=== PATIENT | female | born 1970 | race Caucasian/White ===

== ENCOUNTER 2018-07-12 08:15 | Outpatient (RCR) | payer OTHER, MEDICAID, SELFPAY ==
--- NOTE | 2018-06-14 15:13 | PT.OIE ---
Current Diagnoses Other chronic pain (06/14/18) Radiculopathy, lumbar region (06/14/18) Low back pain (06/14/18) Past Medical History (Last Reviewed 05/01/18 @ 13:56 by Chichi Chester DO) Depression (Chronic) Factor V Leiden (Chronic) Past Surgical History (Last Reviewed 05/01/18 @ 13:56 by Chichi Chester DO) Status post tubal ligation (~2005) Provider Visit Care Team Role Provider Type Chichi Chester DO Attending Provider Physician Primary Care Provider Specialty: Family Practice Address: [address] [place] [address], [facility] Email: [email or web address] Physical Therapy Initial Evaluation PT-OP-A Visit Information Start: 06/14/18 07:23 Freq: Status: Active Protocol: Document 06/14/18 07:30 AMB (Rec: 06/14/18 09:42 AMB [email or web address]) Out-Patient Physical Therapy Visit Information Visit Information Visit Type Initial Evaluation Visit Start Time 07:30 Visit Stop Time 08:15 Total Visit Minutes 45 Visit Number 1 PT-OP-B Current Condition Start: 06/14/18 07:23 Freq: Status: Active Protocol: Document 06/14/18 07:30 AMB (Rec: 06/14/18 09:42 AMB [email or web address]) Current Condition History of Current Condition Onset Date 1 year Current Complaints back pain with radiating R leg pain History of Current Condition The patient reports she increased her walking about a year ago to facilitate weight loss and started having pain in her foot at that time. 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 Now, the pain is in her back and goes down to the right leg, it can go into the left side a little when really bad, but is predominantly R sided. When it gets bad it is usually bad for 2-3 days, then calms down when she rests. Pain is bad at night and affects sleep. Attributes increased pain to walking more. Prior Functional Status Baseline Function- ADL's Independent Baseline Function- Mobility Independent Baseline Function- Other Previously less active Current Functional Impairments (Reported) Functional Limitations- ADL's Limits walking due to pain, does not notice that lifting or reaching necessarily increases pain, but everything hurts when in a pain flare up . 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 All nights are painful and limit her sleeping. Patient Questionnaires Oswestry Low Back Index Oswestry Score 43 Oswestry Impairment 40 to 59% Impaired (Score 40- 59) OP-PT Pain Assessment Location Right Back Pain Location Details down leg Intensity 8 Scale Used Numeric (1 - 10) PT-OP-F Manual Assessment Start: 06/14/18 07:23 Freq: Status: Active Protocol: Document 06/14/18 07:30 AMB (Rec: 06/15/18 08:59 AMB [email or web address]) Manual Assessments Soft Tissue Assessment Soft Tissue Mobility Assessment Tightness at right hamstring and piriformis and quadratus lumborum. Joint Mobility Assessment Joint Mobility Assessment No increased pain with PAs through lumbar spine, but, stiffness present. PT-OP-G Mobility & Gait Start: 06/14/18 07:23 Freq: Status: Active Protocol: Document 06/14/18 07:30 AMB (Rec: 06/15/18 08:59 AMB [email or web address]) OP Gait Assessment Comments Gait Comments Good stride length, mildly reduced trunk rotation PT-OP-J Posture/Palpation/Skin Start: 06/14/18 07:23 Freq: Status: Active Protocol: Document 06/14/18 07:30 AMB (Rec: 06/15/18 08:59 AMB [email or web address]) Posture Evaluation Comments Posture Comments Increased lumbar lordosis PT-OP-K Range of Motion Start: 06/14/18 07:23 Freq: Status: Active Protocol: Document 06/14/18 07:30 AMB (Rec: 06/15/18 08:59 AMB [email or web address]) Lumbar Spine Range of Motion Lumbar Spine Active Percentage Testing Position Standing Flexion 100 Extension 75 Lateral Flexion Left 75 Lateral Flexion Right 25 Comments SB right painful PT-OP-L Special Tests Start: 06/14/18 07:23 Freq: Status: Active Protocol: Document 06/14/18 07:30 AMB (Rec: 06/15/18 08:59 AMB [email or web address]) Special Tests Lumbar Spine Special Tests Straight Leg Raise Test Results positive PT-OP-M Strength Start: 06/14/18 07:23 Freq: Status: Active Protocol: Document 06/14/18 07:30 AMB (Rec: 06/15/18 08:59 AMB [email or web address]) Hip Strength Hip Manual Muscle Testing Right Flexion (L2) 4- Good- Extension (S1) 4 Good Abduction 4 Good Adduction 4 Good Left Flexion (L2) 4+ Good+ Extension (S1) 4+ Good+ Abduction 4+ Good+ Adduction 4+ Good+ PT-OP-Q Treatments Start: 06/14/18 07:23 Freq: Status: Active Protocol: Document 06/14/18 07:30 AMB (Rec: 06/15/18 15:13 AMB [email or web address]) Therapeutic Exercises Supine Exercises 2 Supine Exercise Name piriformis stretch 1 Supine Exercise Name active hamstring stretch Other Exercises 1 Other Exercise Name cat/cow PT-OP-R Modalities Start: 06/14/18 07:23 Freq: Status: Active Protocol: Document 06/14/18 07:30 AMB (Rec: 06/14/18 09:45 AMB [email or web address]) Electric Stimulation Electric Stimulation Interferential Current (IFC) Body Location R low back Duration (Minutes) 12 Patient Position Hooklying PT-OP-T Assessment and Plan Start: 06/14/18 07:23 Freq: Status: Active Protocol: Document 06/14/18 07:30 AMB (Rec: 06/15/18 15:11 AMB [email or web address]) Physical Therapy Assessment Rehab Potential Rehabilitation Potential Good Evaluation Complexity Number of Personal Factors/Comorbidities 1-2 Number of Body Systems Impaired 3 Clinical Presentation at Evaluation Stable Impairments Impairments Activity Tolerance Pain Posture Goals Three Impairment Strength Short Term Goal (STG) The patient will improve her LE and core strength to 4+/5 in all planes. STG Duration 4 weeks Two Impairment ADLS Short Term Goal (STG) The patient will sleep for 6 hours without being woken due to pain. 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 LTG Duration 8 weeks One Impairment Gait Short Term Goal (STG) The patient will walk for 4 miles with pain of 4/10 or less. STG Duration 8 weeks Assessment Summary Assessment Tierra attends PT with radiating leg pain from her low back and hip, intermittent in nature and worse with walking. At evaluation her gait was not significantly impaired but she was very sore to palpation at right quadratus lumborum and piriformis. She will benefit from modalities and manual therapy to reduce her pain, then progress her range of motion and core/hip stability so that she can continue with her walking and weight loss goals without leg pain and foot numbness. Physical Therapy Plan Frequency and Duration Frequency of Treatment 2x/Week Duration of Treatment 8 weeks Plan of Care Start Date 06/14/18 Plan of Care End Date 08/02/18 Therapeutic Interventions Therapeutic Interventions Aquatic Therapy Gait Training Home Exercise Program Joint Mobilizations Manual Therapy Neuromuscular Re-education Self-Care/Home Management Therapeutic Activities Therapeutic Exercises Modalities Cold Pack/Ice Massage Electric Stimulation Hot Packs Traction- Mechanical Next Visit Focus/Plan Next Note Type Treatment Note Next Visit Plan Progress HEP for LE stretching /nerve glides, core and hip stabilization, manual therapy/ modalities for pain control as needed.
--- NOTE | 2018-06-14 15:15 | PT.OPPOC ---
Current Diagnoses Other chronic pain (06/14/18) Radiculopathy, lumbar region (06/14/18) Low back pain (06/14/18) Provider Visit Care Team Role Provider Type Chichi Chester DO Attending Provider Physician Primary Care Provider Specialty: Family Practice Address: [address] [place] [address], [id number] Email: [email or web address] Plan Of Care PT-OP-T Assessment and Plan Start: 06/14/18 07:23 Freq: Status: Active Protocol: Document 06/14/18 07:30 AMB (Rec: 06/15/18 15:11 AMB [email or web address]) Physical Therapy Assessment Rehab Potential Rehabilitation Potential Good Evaluation Complexity Number of Personal Factors/Comorbidities 1-2 Number of Body Systems Impaired 3 Clinical Presentation at Evaluation Stable Impairments Impairments Activity Tolerance Pain Posture Goals Three Impairment Strength Short Term Goal (STG) The patient will improve her LE and core strength to 4+/5 in all planes. STG Duration 4 weeks Two Impairment ADLS Short Term Goal (STG) The patient will sleep for 6 hours without being woken due to pain. 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 LTG Duration 8 weeks One Impairment Gait Short Term Goal (STG) The patient will walk for 4 miles with pain of 4/10 or less. STG Duration 8 weeks Assessment Summary Assessment Tierra attends PT with radiating leg pain from her low back and hip, intermittent in nature and worse with walking. At evaluation her gait was not significantly impaired but she was very sore to palpation at right quadratus lumborum and piriformis. She will benefit from modalities and manual therapy to reduce her pain, then progress her range of motion and core/hip stability so that she can continue with her walking and weight loss goals without leg pain and foot numbness. Physical Therapy Plan Frequency and Duration Frequency of Treatment 2x/Week Duration of Treatment 8 weeks Plan of Care Start Date 06/14/18 Plan of Care End Date 08/02/18 Therapeutic Interventions Therapeutic Interventions Aquatic Therapy Gait Training Home Exercise Program Joint Mobilizations Manual Therapy Neuromuscular Re-education Self-Care/Home Management Therapeutic Activities Therapeutic Exercises Modalities Cold Pack/Ice Massage Electric Stimulation Hot Packs Traction- Mechanical Next Visit Focus/Plan Next Note Type Treatment Note Next Visit Plan Progress HEP for LE stretching /nerve glides, core and hip stabilization, manual therapy/ modalities for pain control as needed. Plan of Care Dates Plan of Care Start Date 06/14/18 Plan of Care End Date 08/02/18 Please Sign and Return: I have reviewed this Plan of Care and certify that the skilled therapy services above are required to meet the patient?s needs. Physician Signature Date Printed Name and Credentials Clinical Instructor Signature Printed Name and Credentials
--- NOTE | 2018-06-16 16:09 | PT.OTN ---
Current Diagnoses Other chronic pain (06/16/18) Radiculopathy, lumbar region (06/16/18) Low back pain (06/16/18) Physical Therapy Treatment Note PT-OP-A Visit Information Start: 06/14/18 07:23 Freq: Status: Active Protocol: Document 06/16/18 11:15 AMB (Rec: 06/16/18 13:01 AMB [email or web address]) Out-Patient Physical Therapy Visit Information Visit Information Visit Type Treatment Note Visit Start Time 11:15 Visit Stop Time 12:00 Total Visit Minutes 45 Visit Number 2 PT-OP-B Current Condition Start: 06/14/18 07:23 Freq: Status: Active Protocol: Document 06/14/18 07:30 AMB (Rec: 06/14/18 09:42 AMB [email or web address]) Current Condition History of Current Condition Onset Date 1 year Current Complaints back pain with radiating R leg pain History of Current Condition The patient reports she increased her walking about a year ago to facilitate weight loss and started having pain in her foot at that time. 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 Now, the pain is in her back and goes down to the right leg, it can go into the left side a little when really bad, but is predominantly R sided. When it gets bad it is usually bad for 2-3 days, then calms down when she rests. Pain is bad at night and affects sleep. Attributes increased pain to walking more. Prior Functional Status Baseline Function- ADL's Independent Baseline Function- Mobility Independent Baseline Function- Other Previously less active Current Functional Impairments (Reported) Functional Limitations- ADL's Limits walking due to pain, does not notice that lifting or reaching necessarily increases pain, but everything hurts when in a pain flare up . 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 PT-OP-F Manual Assessment Start: 06/14/18 07:23 Freq: Status: Active Protocol: Document 06/14/18 07:30 AMB (Rec: 06/15/18 08:59 AMB [email or web address]) Manual Assessments Soft Tissue Assessment Soft Tissue Mobility Assessment Tightness at right hamstring and piriformis. Joint Mobility Assessment Joint Mobility Assessment No increased pain with PAs through lumbar spine, but, stiffness present. PT-OP-G Mobility & Gait Start: 06/14/18 07:23 Freq: Status: Active Protocol: Document 06/14/18 07:30 AMB (Rec: 06/15/18 08:59 AMB [email or web address]) OP Gait Assessment Comments Gait Comments Good stride length, mildly reduced trunk rotation PT-OP-J Posture/Palpation/Skin Start: 06/14/18 07:23 Freq: Status: Active Protocol: Document 06/14/18 07:30 AMB (Rec: 06/15/18 08:59 AMB [email or web address]) Posture Evaluation Comments Posture Comments Increased lumbar lordosis PT-OP-K Range of Motion Start: 06/14/18 07:23 Freq: Status: Active Protocol: Document 06/14/18 07:30 AMB (Rec: 06/15/18 08:59 AMB [email or web address]) Lumbar Spine Range of Motion Lumbar Spine Active Percentage Testing Position Standing Flexion 100 Extension 75 Lateral Flexion Left 75 Lateral Flexion Right 25 Comments SB right painful PT-OP-L Special Tests Start: 06/14/18 07:23 Freq: Status: Active Protocol: Document 06/14/18 07:30 AMB (Rec: 06/15/18 08:59 AMB [email or web address]) Special Tests Lumbar Spine Special Tests Straight Leg Raise Test Results positive PT-OP-M Strength Start: 06/14/18 07:23 Freq: Status: Active Protocol: Document 06/14/18 07:30 AMB (Rec: 06/15/18 08:59 AMB [email or web address]) Hip Strength Hip Manual Muscle Testing Right Flexion (L2) 4- Good- Extension (S1) 4 Good Abduction 4 Good Adduction 4 Good Left Flexion (L2) 4+ Good+ Extension (S1) 4+ Good+ Abduction 4+ Good+ Adduction 4+ Good+ PT-OP-Q Treatments Start: 06/14/18 07:23 Freq: Status: Active Protocol: Document 06/16/18 11:15 AMB (Rec: 06/16/18 16:07 AMB [email or web address]) Therapeutic Exercises Supine Exercises 5 Supine Exercise Name quad stretch Reps/Minutes 30x2 4 Supine Exercise Name bridges Reps/Minutes 2x10 3 Supine Exercise Name SLR Reps/Minutes 2x10 2 Supine Exercise Name piriformis stretch 1 Supine Exercise Name active hamstring stretch Sidelying Exercises 2 Sidelying Exercise Name clamshell Reps/Minutes 2x10 1 Sidelying Exercise Name hip abd SLR Reps/Minutes 2x10 Manual Therapy Treatment Soft Tissue Mobilization 1 Body Location L hip Mobilization Type Myofascial Release Comments long axis traction, piriformis MFR PT-OP-R Modalities Start: 06/14/18 07:23 Freq: Status: Active Protocol: Document 06/14/18 07:30 AMB (Rec: 06/14/18 09:45 AMB [email or web address]) Electric Stimulation Electric Stimulation Interferential Current (IFC) Body Location R low back Duration (Minutes) 12 Patient Position Hooklying PT-OP-T Assessment and Plan Start: 06/14/18 07:23 Freq: Status: Active Protocol: Document 06/16/18 11:15 AMB (Rec: 06/16/18 16:07 AMB [email or web address]) Physical Therapy Assessment Assessment Summary Assessment Pt had a painful day today. Clamshells did not increase pain, but other exercises did. Physical Therapy Plan Next Visit Focus/Plan Next Note Type Treatment Note Next Visit Plan Progress HEP for LE stretching /nerve glides, core and hip stabilization, manual therapy/ modalities for pain control as needed.
--- NOTE | 2018-06-23 11:26 | PT.OTN ---
Current Diagnoses Other chronic pain (06/23/18) Radiculopathy, lumbar region (06/23/18) Low back pain (06/23/18) Physical Therapy Treatment Note PT-OP-A Visit Information Start: 06/14/18 07:23 Freq: Status: Active Protocol: Document 06/23/18 10:30 AMB (Rec: 06/23/18 11:26 AMB [email or web address]) Out-Patient Physical Therapy Visit Information Visit Information Visit Type Treatment Note Visit Start Time 10:30 Visit Stop Time 11:15 Total Visit Minutes 45 Visit Number 3 PT-OP-B Current Condition Start: 06/14/18 07:23 Freq: Status: Active Protocol: Document 06/14/18 07:30 AMB (Rec: 06/14/18 09:42 AMB [email or web address]) Current Condition History of Current Condition Onset Date 1 year Current Complaints back pain with radiating R leg pain History of Current Condition The patient reports she increased her walking about a year ago to facilitate weight loss and started having pain in her foot at that time. 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 Now, the pain is in her back and goes down to the right leg, it can go into the left side a little when really bad, but is predominantly R sided. When it gets bad it is usually bad for 2-3 days, then calms down when she rests. Pain is bad at night and affects sleep. Attributes increased pain to walking more. Prior Functional Status Baseline Function- ADL's Independent Baseline Function- Mobility Independent Baseline Function- Other Previously less active Current Functional Impairments (Reported) Functional Limitations- ADL's Limits walking due to pain, does not notice that lifting or reaching necessarily increases pain, but everything hurts when in a pain flare up . 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 PT-OP-F Manual Assessment Start: 06/14/18 07:23 Freq: Status: Active Protocol: Document 06/14/18 07:30 AMB (Rec: 06/15/18 08:59 AMB [email or web address]) Manual Assessments Soft Tissue Assessment Soft Tissue Mobility Assessment Tightness at right hamstring and piriformis. Joint Mobility Assessment Joint Mobility Assessment No increased pain with PAs through lumbar spine, but, stiffness present. PT-OP-G Mobility & Gait Start: 06/14/18 07:23 Freq: Status: Active Protocol: Document 06/14/18 07:30 AMB (Rec: 06/15/18 08:59 AMB [email or web address]) OP Gait Assessment Comments Gait Comments Good stride length, mildly reduced trunk rotation PT-OP-J Posture/Palpation/Skin Start: 06/14/18 07:23 Freq: Status: Active Protocol: Document 06/14/18 07:30 AMB (Rec: 06/15/18 08:59 AMB [email or web address]) Posture Evaluation Comments Posture Comments Increased lumbar lordosis PT-OP-K Range of Motion Start: 06/14/18 07:23 Freq: Status: Active Protocol: Document 06/14/18 07:30 AMB (Rec: 06/15/18 08:59 AMB [email or web address]) Lumbar Spine Range of Motion Lumbar Spine Active Percentage Testing Position Standing Flexion 100 Extension 75 Lateral Flexion Left 75 Lateral Flexion Right 25 Comments SB right painful PT-OP-L Special Tests Start: 06/14/18 07:23 Freq: Status: Active Protocol: Document 06/14/18 07:30 AMB (Rec: 06/15/18 08:59 AMB [email or web address]) Special Tests Lumbar Spine Special Tests Straight Leg Raise Test Results positive PT-OP-M Strength Start: 06/14/18 07:23 Freq: Status: Active Protocol: Document 06/14/18 07:30 AMB (Rec: 06/15/18 08:59 AMB [email or web address]) Hip Strength Hip Manual Muscle Testing Right Flexion (L2) 4- Good- Extension (S1) 4 Good Abduction 4 Good Adduction 4 Good Left Flexion (L2) 4+ Good+ Extension (S1) 4+ Good+ Abduction 4+ Good+ Adduction 4+ Good+ PT-OP-Q Treatments Start: 06/14/18 07:23 Freq: Status: Active Protocol: Document 06/23/18 10:30 AMB (Rec: 06/23/18 11:26 AMB [email or web address]) Therapeutic Exercises Supine Exercises 4 Supine Exercise Name bridges Reps/Minutes 2x10 3 Supine Exercise Name SLR Reps/Minutes 2x10 2 Supine Exercise Name piriformis stretch 1 Supine Exercise Name active hamstring stretch Sidelying Exercises 2 Sidelying Exercise Name clamshell Reps/Minutes 2x10 1 Sidelying Exercise Name hip abd SLR Reps/Minutes 2x10 Other Exercises 1 Other Exercise Name cat/cow Manual Therapy Treatment Manual Traction Lumbar Details long axis traction Taping 1 Body Location lumbar Type of Tape Kinesio Tape Comments I strip PT-OP-R Modalities Start: 06/14/18 07:23 Freq: Status: Active Protocol: Document 06/23/18 10:30 AMB (Rec: 06/23/18 11:26 AMB [email or web address]) Hot Pack/Cold Pack Treatment Hot Pack Location low back Patient Position Hooklying Treatment Duration (minutes) 12 PT-OP-T Assessment and Plan Start: 06/14/18 07:23 Freq: Status: Active Protocol: Document 06/23/18 10:30 AMB (Rec: 06/23/18 11:26 AMB [email or web address]) Physical Therapy Assessment Assessment Summary Assessment Pt with about 2/10 pain has been taking it easy because of the snow. Reassess how she tolerated exercises at next visit. Physical Therapy Plan Next Visit Focus/Plan Next Note Type Treatment Note Next Visit Plan Progress HEP for LE stretching /nerve glides, core and hip stabilization, manual therapy/ modalities for pain control as needed.
--- NOTE | 2018-06-28 12:27 | PT.OTN ---
Current Diagnoses Other chronic pain (06/28/18) Radiculopathy, lumbar region (06/28/18) Low back pain (06/28/18) Physical Therapy Treatment Note PT-OP-A Visit Information Start: 06/14/18 07:23 Freq: Status: Active Protocol: Document 06/28/18 10:30 AMB (Rec: 06/28/18 12:27 AMB [email or web address]) Out-Patient Physical Therapy Visit Information Visit Information Visit Type Treatment Note Visit Start Time 10:30 Visit Stop Time 11:15 Total Visit Minutes 45 Visit Number 4 PT-OP-B Current Condition Start: 06/14/18 07:23 Freq: Status: Active Protocol: Document 06/14/18 07:30 AMB (Rec: 06/14/18 09:42 AMB [email or web address]) Current Condition History of Current Condition Onset Date 1 year Current Complaints back pain with radiating R leg pain History of Current Condition The patient reports she increased her walking about a year ago to facilitate weight loss and started having pain in her foot at that time. 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 Now, the pain is in her back and goes down to the right leg, it can go into the left side a little when really bad, but is predominantly R sided. When it gets bad it is usually bad for 2-3 days, then calms down when she rests. Pain is bad at night and affects sleep. Attributes increased pain to walking more. Prior Functional Status Baseline Function- ADL's Independent Baseline Function- Mobility Independent Baseline Function- Other Previously less active Current Functional Impairments (Reported) Functional Limitations- ADL's Limits walking due to pain, does not notice that lifting or reaching necessarily increases pain, but everything hurts when in a pain flare up . 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 PT-OP-F Manual Assessment Start: 06/14/18 07:23 Freq: Status: Active Protocol: Document 06/14/18 07:30 AMB (Rec: 06/15/18 08:59 AMB [email or web address]) Manual Assessments Soft Tissue Assessment Soft Tissue Mobility Assessment Tightness at right hamstring and piriformis. Joint Mobility Assessment Joint Mobility Assessment No increased pain with PAs through lumbar spine, but, stiffness present. PT-OP-G Mobility & Gait Start: 06/14/18 07:23 Freq: Status: Active Protocol: Document 06/14/18 07:30 AMB (Rec: 06/15/18 08:59 AMB [email or web address]) OP Gait Assessment Comments Gait Comments Good stride length, mildly reduced trunk rotation PT-OP-J Posture/Palpation/Skin Start: 06/14/18 07:23 Freq: Status: Active Protocol: Document 06/14/18 07:30 AMB (Rec: 06/15/18 08:59 AMB [email or web address]) Posture Evaluation Comments Posture Comments Increased lumbar lordosis PT-OP-K Range of Motion Start: 06/14/18 07:23 Freq: Status: Active Protocol: Document 06/14/18 07:30 AMB (Rec: 06/15/18 08:59 AMB [email or web address]) Lumbar Spine Range of Motion Lumbar Spine Active Percentage Testing Position Standing Flexion 100 Extension 75 Lateral Flexion Left 75 Lateral Flexion Right 25 Comments SB right painful PT-OP-L Special Tests Start: 06/14/18 07:23 Freq: Status: Active Protocol: Document 06/14/18 07:30 AMB (Rec: 06/15/18 08:59 AMB [email or web address]) Special Tests Lumbar Spine Special Tests Straight Leg Raise Test Results positive PT-OP-M Strength Start: 06/14/18 07:23 Freq: Status: Active Protocol: Document 06/14/18 07:30 AMB (Rec: 06/15/18 08:59 AMB [email or web address]) Hip Strength Hip Manual Muscle Testing Right Flexion (L2) 4- Good- Extension (S1) 4 Good Abduction 4 Good Adduction 4 Good Left Flexion (L2) 4+ Good+ Extension (S1) 4+ Good+ Abduction 4+ Good+ Adduction 4+ Good+ PT-OP-Q Treatments Start: 06/14/18 07:23 Freq: Status: Active Protocol: Document 06/28/18 10:30 AMB (Rec: 06/28/18 12:27 AMB [email or web address]) Therapeutic Exercises Supine Exercises 7 Supine Exercise Name air bike Reps/Minutes 10 6 Supine Exercise Name double leg eccentric control Reps/Minutes 10 4 Supine Exercise Name bridges Reps/Minutes 2x10 3 Supine Exercise Name SLR Reps/Minutes 2x10 2 Supine Exercise Name piriformis stretch Sidelying Exercises 1 Sidelying Exercise Name hip abd SLR Reps/Minutes 2x10 Other Exercises 2 Other Exercise Name quadruped LE/UE ext/flex Reps/Minutes 2x10 PT-OP-R Modalities Start: 06/14/18 07:23 Freq: Status: Active Protocol: Document 06/23/18 10:30 AMB (Rec: 06/23/18 11:26 AMB [email or web address]) Hot Pack/Cold Pack Treatment Hot Pack Location low back Patient Position Hooklying Treatment Duration (minutes) 12 PT-OP-T Assessment and Plan Start: 06/14/18 07:23 Freq: Status: Active Protocol: Document 06/28/18 10:30 AMB (Rec: 06/28/18 12:27 AMB [email or web address]) Physical Therapy Assessment Assessment Summary Assessment Pt tolerated increased challenge of core exercises today, but has not been working or walking as far with the snow so her baseline pain is reduced. Physical Therapy Plan Next Visit Focus/Plan Next Note Type Treatment Note Next Visit Plan Progress HEP for LE stretching /nerve glides, core and hip stabilization, manual therapy/ modalities for pain control as needed.
--- NOTE | 2018-06-30 15:09 | PT.OTN ---
Current Diagnoses Other chronic pain (06/30/18) Radiculopathy, lumbar region (06/30/18) Low back pain (06/30/18) Physical Therapy Treatment Note PT-OP-A Visit Information Start: 06/14/18 07:23 Freq: Status: Active Protocol: Document 06/30/18 10:30 AMB (Rec: 06/30/18 10:40 AMB [id number]) Out-Patient Physical Therapy Visit Information Visit Information Visit Type Treatment Note Visit Start Time 10:30 Visit Stop Time 11:15 Total Visit Minutes 45 Visit Number 5 PT-OP-B Current Condition Start: 06/14/18 07:23 Freq: Status: Active Protocol: Document 06/14/18 07:30 AMB (Rec: 06/14/18 09:42 AMB [email or web address]) Current Condition History of Current Condition Onset Date 1 year Current Complaints back pain with radiating R leg pain History of Current Condition The patient reports she increased her walking about a year ago to facilitate weight loss and started having pain in her foot at that time. 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 Now, the pain is in her back and goes down to the right leg, it can go into the left side a little when really bad, but is predominantly R sided. When it gets bad it is usually bad for 2-3 days, then calms down when she rests. Pain is bad at night and affects sleep. Attributes increased pain to walking more. Prior Functional Status Baseline Function- ADL's Independent Baseline Function- Mobility Independent Baseline Function- Other Previously less active Current Functional Impairments (Reported) Functional Limitations- ADL's Limits walking due to pain, does not notice that lifting or reaching necessarily increases pain, but everything hurts when in a pain flare up . 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 PT-OP-F Manual Assessment Start: 06/14/18 07:23 Freq: Status: Active Protocol: Document 06/14/18 07:30 AMB (Rec: 06/15/18 08:59 AMB [email or web address]) Manual Assessments Soft Tissue Assessment Soft Tissue Mobility Assessment Tightness at right hamstring and piriformis. Joint Mobility Assessment Joint Mobility Assessment No increased pain with PAs through lumbar spine, but, stiffness present. PT-OP-G Mobility & Gait Start: 06/14/18 07:23 Freq: Status: Active Protocol: Document 06/14/18 07:30 AMB (Rec: 06/15/18 08:59 AMB [email or web address]) OP Gait Assessment Comments Gait Comments Good stride length, mildly reduced trunk rotation PT-OP-J Posture/Palpation/Skin Start: 06/14/18 07:23 Freq: Status: Active Protocol: Document 06/14/18 07:30 AMB (Rec: 06/15/18 08:59 AMB [email or web address]) Posture Evaluation Comments Posture Comments Increased lumbar lordosis PT-OP-K Range of Motion Start: 06/14/18 07:23 Freq: Status: Active Protocol: Document 06/14/18 07:30 AMB (Rec: 06/15/18 08:59 AMB [email or web address]) Lumbar Spine Range of Motion Lumbar Spine Active Percentage Testing Position Standing Flexion 100 Extension 75 Lateral Flexion Left 75 Lateral Flexion Right 25 Comments SB right painful PT-OP-L Special Tests Start: 06/14/18 07:23 Freq: Status: Active Protocol: Document 06/14/18 07:30 AMB (Rec: 06/15/18 08:59 AMB [email or web address]) Special Tests Lumbar Spine Special Tests Straight Leg Raise Test Results positive PT-OP-M Strength Start: 06/14/18 07:23 Freq: Status: Active Protocol: Document 06/14/18 07:30 AMB (Rec: 06/15/18 08:59 AMB [email or web address]) Hip Strength Hip Manual Muscle Testing Right Flexion (L2) 4- Good- Extension (S1) 4 Good Abduction 4 Good Adduction 4 Good Left Flexion (L2) 4+ Good+ Extension (S1) 4+ Good+ Abduction 4+ Good+ Adduction 4+ Good+ PT-OP-Q Treatments Start: 06/14/18 07:23 Freq: Status: Active Protocol: Document 06/30/18 10:30 AMB (Rec: 06/30/18 11:11 AMB [id number]) Therapeutic Exercises Supine Exercises 7 Supine Exercise Name air bike Reps/Minutes 10 4 Supine Exercise Name bridges Reps/Minutes 2x10 Manual Therapy Treatment Soft Tissue Mobilization 1 Body Location lumbar spine Mobilization Type Myofascial Release Comments long axis traction, paraspinals PT-OP-R Modalities Start: 06/14/18 07:23 Freq: Status: Active Protocol: Document 06/23/18 10:30 AMB (Rec: 06/23/18 11:26 AMB [email or web address]) Hot Pack/Cold Pack Treatment Hot Pack Location low back Patient Position Hooklying Treatment Duration (minutes) 12 PT-OP-T Assessment and Plan Start: 06/14/18 07:23 Freq: Status: Active Protocol: Document 06/30/18 10:30 AMB (Rec: 06/30/18 15:08 AMB [email or web address]) Physical Therapy Assessment Assessment Summary Assessment Recheck how patient tolerated manual therapy to lumbar spine . Physical Therapy Plan Next Visit Focus/Plan Next Note Type Treatment Note Next Visit Plan Progress HEP for LE stretching /nerve glides, core and hip stabilization, manual therapy/ modalities for pain control as needed.
--- NOTE | 2018-07-05 12:04 | PT.OTN ---
Current Diagnoses Other chronic pain (07/05/18) Radiculopathy, lumbar region (07/05/18) Low back pain (07/05/18) Physical Therapy Treatment Note PT-OP-A Visit Information Start: 06/14/18 07:23 Freq: Status: Active Protocol: Document 07/05/18 10:30 AMB (Rec: 07/05/18 10:49 AMB [email or web address]) Out-Patient Physical Therapy Visit Information Visit Information Visit Type Treatment Note Visit Start Time 10:30 Visit Stop Time 11:15 Total Visit Minutes 45 Visit Number 6 PT-OP-B Current Condition Start: 06/14/18 07:23 Freq: Status: Active Protocol: Document 06/14/18 07:30 AMB (Rec: 06/14/18 09:42 AMB [email or web address]) Current Condition History of Current Condition Onset Date 1 year Current Complaints back pain with radiating R leg pain History of Current Condition The patient reports she increased her walking about a year ago to facilitate weight loss and started having pain in her foot at that time. 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 Now, the pain is in her back and goes down to the right leg, it can go into the left side a little when really bad, but is predominantly R sided. When it gets bad it is usually bad for 2-3 days, then calms down when she rests. Pain is bad at night and affects sleep. Attributes increased pain to walking more. Prior Functional Status Baseline Function- ADL's Independent Baseline Function- Mobility Independent Baseline Function- Other Previously less active Current Functional Impairments (Reported) Functional Limitations- ADL's Limits walking due to pain, does not notice that lifting or reaching necessarily increases pain, but everything hurts when in a pain flare up . 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 About a 5-6/10 pain. PT-OP-F Manual Assessment Start: 06/14/18 07:23 Freq: Status: Active Protocol: Document 06/14/18 07:30 AMB (Rec: 06/15/18 08:59 AMB [email or web address]) Manual Assessments Soft Tissue Assessment Soft Tissue Mobility Assessment Tightness at right hamstring and piriformis. Joint Mobility Assessment Joint Mobility Assessment No increased pain with PAs through lumbar spine, but, stiffness present. PT-OP-G Mobility & Gait Start: 06/14/18 07:23 Freq: Status: Active Protocol: Document 06/14/18 07:30 AMB (Rec: 06/15/18 08:59 AMB [email or web address]) OP Gait Assessment Comments Gait Comments Good stride length, mildly reduced trunk rotation PT-OP-J Posture/Palpation/Skin Start: 06/14/18 07:23 Freq: Status: Active Protocol: Document 06/14/18 07:30 AMB (Rec: 06/15/18 08:59 AMB [email or web address]) Posture Evaluation Comments Posture Comments Increased lumbar lordosis PT-OP-K Range of Motion Start: 06/14/18 07:23 Freq: Status: Active Protocol: Document 06/14/18 07:30 AMB (Rec: 06/15/18 08:59 AMB [email or web address]) Lumbar Spine Range of Motion Lumbar Spine Active Percentage Testing Position Standing Flexion 100 Extension 75 Lateral Flexion Left 75 Lateral Flexion Right 25 Comments SB right painful PT-OP-L Special Tests Start: 06/14/18 07:23 Freq: Status: Active Protocol: Document 06/14/18 07:30 AMB (Rec: 06/15/18 08:59 AMB [email or web address]) Special Tests Lumbar Spine Special Tests Straight Leg Raise Test Results positive PT-OP-M Strength Start: 06/14/18 07:23 Freq: Status: Active Protocol: Document 06/14/18 07:30 AMB (Rec: 06/15/18 08:59 AMB [email or web address]) Hip Strength Hip Manual Muscle Testing Right Flexion (L2) 4- Good- Extension (S1) 4 Good Abduction 4 Good Adduction 4 Good Left Flexion (L2) 4+ Good+ Extension (S1) 4+ Good+ Abduction 4+ Good+ Adduction 4+ Good+ PT-OP-Q Treatments Start: 06/14/18 07:23 Freq: Status: Active Protocol: Document 07/05/18 10:30 AMB (Rec: 07/05/18 12:04 AMB [email or web address]) Therapeutic Exercises Supine Exercises 8 Supine Exercise Name roll in roll out Resistance #3 t band 4 Supine Exercise Name bridges Reps/Minutes 2x10 3 Supine Exercise Name SLR Reps/Minutes 2x10 2 Supine Exercise Name piriformis stretch 1 Supine Exercise Name active hamstring stretch Sidelying Exercises 2 Sidelying Exercise Name clamshell Reps/Minutes 2x10 1 Sidelying Exercise Name hip abd SLR Reps/Minutes 2x10 Other Exercises 2 Other Exercise Name quadruped LE/UE ext/flex Reps/Minutes 2x10 PT-OP-R Modalities Start: 06/14/18 07:23 Freq: Status: Active Protocol: Document 07/05/18 10:30 AMB (Rec: 07/05/18 12:04 AMB [email or web address]) Hot Pack/Cold Pack Treatment Cold Pack Location R hip Patient Position Hooklying Treatment Duration (minutes) 7 PT-OP-T Assessment and Plan Start: 06/14/18 07:23 Freq: Status: Active Protocol: Document 07/05/18 10:30 AMB (Rec: 07/05/18 12:04 AMB [email or web address]) Physical Therapy Assessment Assessment Summary Assessment Pt did not tolerate manual therapy, so focus will be on exercise. She now has a program for when she is feeling good, and when she is in a pain flare. Physical Therapy Plan Next Visit Focus/Plan Next Note Type Treatment Note Next Visit Plan Progress HEP for LE stretching /nerve glides, core and hip stabilization, manual therapy/ modalities for pain control as needed.
--- NOTE | 2018-07-07 14:24 | PT.OTN ---
Current Diagnoses Other chronic pain (07/07/18) Radiculopathy, lumbar region (07/07/18) Low back pain (07/07/18) Physical Therapy Treatment Note PT-OP-A Visit Information Start: 06/14/18 07:23 Freq: Status: Active Protocol: Document 07/07/18 09:45 AMB (Rec: 07/07/18 14:23 AMB [email or web address]) Out-Patient Physical Therapy Visit Information Visit Information Visit Type Treatment Note Visit Start Time 10:30 Visit Stop Time 11:15 Total Visit Minutes 45 Visit Number 7 PT-OP-B Current Condition Start: 06/14/18 07:23 Freq: Status: Active Protocol: Document 06/14/18 07:30 AMB (Rec: 06/14/18 09:42 AMB [email or web address]) Current Condition History of Current Condition Onset Date 1 year Current Complaints back pain with radiating R leg pain History of Current Condition The patient reports she increased her walking about a year ago to facilitate weight loss and started having pain in her foot at that time. 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 Now, the pain is in her back and goes down to the right leg, it can go into the left side a little when really bad, but is predominantly R sided. When it gets bad it is usually bad for 2-3 days, then calms down when she rests. Pain is bad at night and affects sleep. Attributes increased pain to walking more. Prior Functional Status Baseline Function- ADL's Independent Baseline Function- Mobility Independent Baseline Function- Other Previously less active Current Functional Impairments (Reported) Functional Limitations- ADL's Limits walking due to pain, does not notice that lifting or reaching necessarily increases pain, but everything hurts when in a pain flare up . 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 PT-OP-F Manual Assessment Start: 06/14/18 07:23 Freq: Status: Active Protocol: Document 06/14/18 07:30 AMB (Rec: 06/15/18 08:59 AMB [email or web address]) Manual Assessments Soft Tissue Assessment Soft Tissue Mobility Assessment Tightness at right hamstring and piriformis. Joint Mobility Assessment Joint Mobility Assessment No increased pain with PAs through lumbar spine, but, stiffness present. PT-OP-G Mobility & Gait Start: 06/14/18 07:23 Freq: Status: Active Protocol: Document 06/14/18 07:30 AMB (Rec: 06/15/18 08:59 AMB [email or web address]) OP Gait Assessment Comments Gait Comments Good stride length, mildly reduced trunk rotation PT-OP-J Posture/Palpation/Skin Start: 06/14/18 07:23 Freq: Status: Active Protocol: Document 06/14/18 07:30 AMB (Rec: 06/15/18 08:59 AMB [email or web address]) Posture Evaluation Comments Posture Comments Increased lumbar lordosis PT-OP-K Range of Motion Start: 06/14/18 07:23 Freq: Status: Active Protocol: Document 06/14/18 07:30 AMB (Rec: 06/15/18 08:59 AMB [email or web address]) Lumbar Spine Range of Motion Lumbar Spine Active Percentage Testing Position Standing Flexion 100 Extension 75 Lateral Flexion Left 75 Lateral Flexion Right 25 Comments SB right painful PT-OP-L Special Tests Start: 06/14/18 07:23 Freq: Status: Active Protocol: Document 06/14/18 07:30 AMB (Rec: 06/15/18 08:59 AMB [email or web address]) Special Tests Lumbar Spine Special Tests Straight Leg Raise Test Results positive PT-OP-M Strength Start: 06/14/18 07:23 Freq: Status: Active Protocol: Document 06/14/18 07:30 AMB (Rec: 06/15/18 08:59 AMB [email or web address]) Hip Strength Hip Manual Muscle Testing Right Flexion (L2) 4- Good- Extension (S1) 4 Good Abduction 4 Good Adduction 4 Good Left Flexion (L2) 4+ Good+ Extension (S1) 4+ Good+ Abduction 4+ Good+ Adduction 4+ Good+ PT-OP-Q Treatments Start: 06/14/18 07:23 Freq: Status: Active Protocol: Document 07/07/18 09:45 AMB (Rec: 07/07/18 14:23 AMB [email or web address]) Therapeutic Exercises Supine Exercises 8 Supine Exercise Name roll in roll out Resistance #3 t band 7 Supine Exercise Name air bike Reps/Minutes 10 4 Supine Exercise Name bridges Reps/Minutes 2x10 3 Supine Exercise Name SLR Reps/Minutes 2x10 2 Supine Exercise Name piriformis stretch 1 Supine Exercise Name active hamstring stretch Sidelying Exercises 2 Sidelying Exercise Name clamshell Reps/Minutes 2x10 1 Sidelying Exercise Name hip abd SLR Reps/Minutes 2x10 Other Exercises 2 Other Exercise Name quadruped LE/UE ext/flex Reps/Minutes 2x10 Manual Therapy Treatment Soft Tissue Mobilization 1 Body Location lumbar spine Mobilization Type Myofascial Release Comments long axis traction, paraspinals PT-OP-R Modalities Start: 06/14/18 07:23 Freq: Status: Active Protocol: Document 07/07/18 14:23 AMB (Rec: 07/07/18 14:24 AMB [email or web address]) Electric Stimulation Electric Stimulation Interferential Current (IFC) Body Location R low back Duration (Minutes) 12 Patient Position Hooklying Comments with moist heat PT-OP-T Assessment and Plan Start: 06/14/18 07:23 Freq: Status: Active Protocol: Document 07/07/18 09:45 AMB (Rec: 07/07/18 14:23 AMB [email or web address]) Physical Therapy Assessment Assessment Summary Assessment Pt did not do well with icing. Continue gentle stabilization. Physical Therapy Plan Next Visit Focus/Plan Next Note Type Treatment Note Next Visit Plan Progress HEP for LE stretching /nerve glides, core and hip stabilization, manual therapy/ modalities for pain control as needed.
--- NOTE | 2018-07-12 09:02 | PT.OTN ---
Current Diagnoses Other chronic pain (07/12/18) Radiculopathy, lumbar region (07/12/18) Low back pain (07/12/18) Physical Therapy Treatment Note PT-OP-A Visit Information Start: 06/14/18 07:23 Freq: Status: Active Protocol: Document 07/12/18 08:15 AMB (Rec: 07/12/18 08:27 AMB [id number]) Out-Patient Physical Therapy Visit Information Visit Information Visit Type Treatment Note Visit Start Time 10:30 Visit Stop Time 11:15 Total Visit Minutes 45 Visit Number 8 PT-OP-B Current Condition Start: 06/14/18 07:23 Freq: Status: Active Protocol: Document 06/14/18 07:30 AMB (Rec: 06/14/18 09:42 AMB [email or web address]) Current Condition History of Current Condition Onset Date 1 year Current Complaints back pain with radiating R leg pain History of Current Condition The patient reports she increased her walking about a year ago to facilitate weight loss and started having pain in her foot at that time. 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 Now, the pain is in her back and goes down to the right leg, it can go into the left side a little when really bad, but is predominantly R sided. When it gets bad it is usually bad for 2-3 days, then calms down when she rests. Pain is bad at night and affects sleep. Attributes increased pain to walking more. Prior Functional Status Baseline Function- ADL's Independent Baseline Function- Mobility Independent Baseline Function- Other Previously less active Current Functional Impairments (Reported) Functional Limitations- ADL's Limits walking due to pain, does not notice that lifting or reaching necessarily increases pain, but everything hurts when in a pain flare up . Personal Factors Other Personal Factors That May Effect Works as a coating technician, so on her Therapy/Recovery feet all day PT-OP-C Subjective Start: 06/14/18 07:23 Freq: Status: Active Protocol: Document 07/12/18 08:15 AMB (Rec: 07/12/18 08:27 AMB [id number]) OP-PT Subjective Patient Comments Patient Comments Pt is feeling ok , was painful last night. Noticing R arm numbness at night. PT-OP-F Manual Assessment Start: 06/14/18 07:23 Freq: Status: Active Protocol: Document 06/14/18 07:30 AMB (Rec: 06/15/18 08:59 AMB [email or web address]) Manual Assessments Soft Tissue Assessment Soft Tissue Mobility Assessment Tightness at right hamstring and piriformis. Joint Mobility Assessment Joint Mobility Assessment No increased pain with PAs through lumbar spine, but, stiffness present. PT-OP-G Mobility & Gait Start: 06/14/18 07:23 Freq: Status: Active Protocol: Document 06/14/18 07:30 AMB (Rec: 06/15/18 08:59 AMB [email or web address]) OP Gait Assessment Comments Gait Comments Good stride length, mildly reduced trunk rotation PT-OP-J Posture/Palpation/Skin Start: 06/14/18 07:23 Freq: Status: Active Protocol: Document 06/14/18 07:30 AMB (Rec: 06/15/18 08:59 AMB [email or web address]) Posture Evaluation Comments Posture Comments Increased lumbar lordosis PT-OP-K Range of Motion Start: 06/14/18 07:23 Freq: Status: Active Protocol: Document 06/14/18 07:30 AMB (Rec: 06/15/18 08:59 AMB [email or web address]) Lumbar Spine Range of Motion Lumbar Spine Active Percentage Testing Position Standing Flexion 100 Extension 75 Lateral Flexion Left 75 Lateral Flexion Right 25 Comments SB right painful PT-OP-L Special Tests Start: 06/14/18 07:23 Freq: Status: Active Protocol: Document 06/14/18 07:30 AMB (Rec: 06/15/18 08:59 AMB [email or web address]) Special Tests Lumbar Spine Special Tests Straight Leg Raise Test Results positive PT-OP-M Strength Start: 06/14/18 07:23 Freq: Status: Active Protocol: Document 06/14/18 07:30 AMB (Rec: 06/15/18 08:59 AMB [email or web address]) Hip Strength Hip Manual Muscle Testing Right Flexion (L2) 4- Good- Extension (S1) 4 Good Abduction 4 Good Adduction 4 Good Left Flexion (L2) 4+ Good+ Extension (S1) 4+ Good+ Abduction 4+ Good+ Adduction 4+ Good+ PT-OP-Q Treatments Start: 06/14/18 07:23 Freq: Status: Active Protocol: Document 07/12/18 08:15 AMB (Rec: 07/12/18 08:37 AMB [id number]) Gym Equipment Shuttle Recovery Bilateral Squats Resistance 75 Shuttle Recovery Platform Stable Therapeutic Exercises Supine Exercises 7 Supine Exercise Name air bike Reps/Minutes 10 4 Supine Exercise Name bridges Reps/Minutes 2x10 Comments on ball with knee flex/ext 3 Supine Exercise Name SLR Reps/Minutes 2x10 2 Supine Exercise Name piriformis stretch 1 Supine Exercise Name active hamstring stretch Other Exercises 2 Other Exercise Name quadruped LE/UE ext/flex Reps/Minutes 2x10 1 Other Exercise Name modified side plank Reps/Minutes 15x3 PT-OP-R Modalities Start: 06/14/18 07:23 Freq: Status: Active Protocol: Document 07/07/18 14:23 AMB (Rec: 07/07/18 14:24 AMB [email or web address]) Electric Stimulation Electric Stimulation Interferential Current (IFC) Body Location R low back Duration (Minutes) 12 Patient Position Hooklying Comments with moist heat PT-OP-T Assessment and Plan Start: 06/14/18 07:23 Freq: Status: Active Protocol: Document 07/12/18 08:15 AMB (Rec: 07/12/18 09:02 AMB [id number]) Physical Therapy Assessment Assessment Summary Assessment Pt over most recent pain flare, but can still create leg numbness (with shuttle and single knee to chest stretch) . Physical Therapy Plan Next Visit Focus/Plan Next Note Type Treatment Note Next Visit Plan Progress HEP for LE stretching /nerve glides, core and hip stabilization, manual therapy/ modalities for pain control as needed.
--- NOTE | 2018-10-05 07:50 | PT.OPDS ---
Current Diagnoses Other chronic pain (07/12/18) Radiculopathy, lumbar region (07/12/18) Low back pain (07/12/18) Provider Visit Care Team Role Provider Type Chichi Chester DO Attending Provider Physician Primary Care Provider Specialty: Family Practice Address: [address] [place] [address], [id number] Email: [email or web address] Visit Number Visit Number 8 Discharge Summary PT-OP-B Current Condition Start: 06/14/18 07:23 Freq: Status: Active Protocol: Document 06/14/18 07:30 AMB (Rec: 06/14/18 09:42 AMB [email or web address]) Current Condition History of Current Condition Onset Date 1 year Current Complaints back pain with radiating R leg pain History of Current Condition The patient reports she increased her walking about a year ago to facilitate weight loss and started having pain in her foot at that time. 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 Now, the pain is in her back and goes down to the right leg, it can go into the left side a little when really bad, but is predominantly R sided. When it gets bad it is usually bad for 2-3 days, then calms down when she rests. Pain is bad at night and affects sleep. Attributes increased pain to walking more. Prior Functional Status Baseline Function- ADL's Independent Baseline Function- Mobility Independent Baseline Function- Other Previously less active Current Functional Impairments (Reported) Functional Limitations- ADL's Limits walking due to pain, does not notice that lifting or reaching necessarily increases pain, but everything hurts when in a pain flare up . 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 Noticing R arm numbness at night. PT-OP-F Manual Assessment Start: 06/14/18 07:23 Freq: Status: Active Protocol: Document 06/14/18 07:30 AMB (Rec: 06/15/18 08:59 AMB [email or web address]) Manual Assessments Soft Tissue Assessment Soft Tissue Mobility Assessment Tightness at right hamstring and piriformis. Joint Mobility Assessment Joint Mobility Assessment No increased pain with PAs through lumbar spine, but, stiffness present. PT-OP-G Mobility & Gait Start: 06/14/18 07:23 Freq: Status: Active Protocol: Document 06/14/18 07:30 AMB (Rec: 06/15/18 08:59 AMB [email or web address]) OP Gait Assessment Comments Gait Comments Good stride length, mildly reduced trunk rotation PT-OP-J Posture/Palpation/Skin Start: 06/14/18 07:23 Freq: Status: Active Protocol: Document 06/14/18 07:30 AMB (Rec: 06/15/18 08:59 AMB [email or web address]) Posture Evaluation Comments Posture Comments Increased lumbar lordosis PT-OP-K Range of Motion Start: 06/14/18 07:23 Freq: Status: Active Protocol: Document 06/14/18 07:30 AMB (Rec: 06/15/18 08:59 AMB [email or web address]) Lumbar Spine Range of Motion Lumbar Spine Active Percentage Testing Position Standing Flexion 100 Extension 75 Lateral Flexion Left 75 Lateral Flexion Right 25 Comments SB right painful PT-OP-L Special Tests Start: 06/14/18 07:23 Freq: Status: Active Protocol: Document 06/14/18 07:30 AMB (Rec: 06/15/18 08:59 AMB [email or web address]) Special Tests Lumbar Spine Special Tests Straight Leg Raise Test Results positive PT-OP-M Strength Start: 06/14/18 07:23 Freq: Status: Active Protocol: Document 06/14/18 07:30 AMB (Rec: 06/15/18 08:59 AMB [email or web address]) Hip Strength Hip Manual Muscle Testing Right Flexion (L2) 4- Good- Extension (S1) 4 Good Abduction 4 Good Adduction 4 Good Left Flexion (L2) 4+ Good+ Extension (S1) 4+ Good+ Abduction 4+ Good+ Adduction 4+ Good+ PT-OP-T Assessment and Plan Start: 06/14/18 07:23 Freq: Status: Active Protocol: Document 10/05/18 07:47 AMB (Rec: 10/05/18 07:50 AMB [email or web address]) Physical Therapy Assessment Assessment Summary Assessment Tierra was seen for 7 visits of PT in June. Her symptoms were not really improving, so she followed up with her physician for further testing. 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 Numbness down the leg and back pain were still present at her last visit. Physical Therapy Plan Discharge Physical Therapy Discharge Reasons Plateau in Progress Discharge Comments Follow up with
== END 2018-10-05 10:00 | disposition home or self-care (01) ==
LOC: PHYS 08:15
PROVIDERS: PCP Family Medicine; Visit Provider Family Medicine
DX: M54.5 Low back pain (principal); M54.16 Radiculopathy, lumbar region; G89.29 Other chronic pain
CPT/HCPCS: 97014; 97110; 97140; 97161; G0283

== ENCOUNTER → 2018-08-29 11:24 | Outpatient (CLI) | payer OTHER, MEDICAID, SELFPAY ==
--- NOTE | 2018-08-29 11:26 | DI.RAD.S_ITS ---
PROCEDURE: XR LUMBAR SPINE MIN 4V INDICATIONS: Lumbar radiculopathy TECHNIQUE: 5 views of the lumbar spine were acquired. COMPARISON: None. FINDINGS: Bones: 5 nonrib-bearing vertebrae are present. There is normal bony alignment. No vertebral body compression fractures. No suspicious bony lesions. Soft tissues: Overlying bowel gas pattern is normal. No suspicious soft tissue calcifications. Oblique images: No pars defects. IMPRESSION: Mild degenerative disc disease along the middle and lower thirds of the lumbosacral spine, no compression fracture or subluxation is seen. Facet osteoarthritis is mild to moderate over the L4-5 and L5-S1 levels of the LS-spine. A pattern of definite spinal and foraminal stenosis is not seen, however. Dictated by: Frank Srinivasan M.D. on 08/29/2018 at 13:28 Approved by: Frank Srinivasan M.D. on 08/29/2018 at 13:29
== END ==
PROVIDERS: PCP Family Medicine; Visit Provider Registered Nurse
DX: M54.16 Radiculopathy, lumbar region (principal); M51.36 Other intervertebral disc degeneration, lumbar region; M47.9 Spondylosis, unspecified
CPT/HCPCS: 72110

== ENCOUNTER → 2019-07-23 11:39 | Outpatient (CLI) | payer OTHER, MEDICAID, SELFPAY | PROVIDERS: PCP Family Medicine; Referring Provider Family Medicine; Visit Provider Family Medicine | DX: M54.12 Radiculopathy, cervical region (principal); M54.5 Low back pain; Z53.9 Procedure and treatment not carried out, unspecified reason ==

== ENCOUNTER → 2019-07-30 13:15 | Outpatient (CLI) | payer OTHER, MEDICAID, SELFPAY | PROVIDERS: PCP Family Medicine; Referring Provider Family Medicine; Visit Provider Family Medicine | DX: M54.9 Dorsalgia, unspecified (principal); Z53.9 Procedure and treatment not carried out, unspecified reason ==

== ENCOUNTER → 2020-03-10 10:05 | Outpatient (CLI) | payer OTHER, MEDICAID, SELFPAY | PROVIDERS: PCP Family Medicine; Referring Provider Family Medicine; Visit Provider Family Medicine | DX: Z01.818 Encounter for other preprocedural examination (principal) | CPT/HCPCS: 93005; 93010 ==

== ENCOUNTER → 2020-03-11 10:36 | Outpatient (CLI) | payer OTHER, MEDICAID, SELFPAY ==
[2020-03-11 11:32] LABS: Add Manual Diff / Slide Review NO; Basophils Absolute Auto 0 /uL (0-100); Basophils Percent Auto 0.4 % (0-2); Eosinophils Absolute Auto 100 /uL (0-450); Eosinophils Percent Auto 1.6 % (2-4); Hemoglobin 13.2 g/dL (12.0-16.0); Lymphocytes Absolute Auto 2400 /uL (1100-4500); Lymphocytes Percent Auto 42.8 % (25-40); Mean Corpuscular HGB Conc 33.8 % (30-36); Mean Corpuscular Hemoglobin 30.4 PG (26-34); Monocytes Absolute Auto 400 /uL (0-900); Monocytes Percent Auto 6.7 % (3-14); Neutrophils Absolute Auto 2700 /uL (1500-7000); Neutrophils Percent Auto 48.5 % (50-75); Platelet Count 238 X10^3/uL (150-400); Red Blood Cell Count 4.33 X10^6/uL (4.0-5.2); Red Cell Distribution Width 12.8 % (11.6-14.8)
[2020-03-11 11:55] LABS: Alanine Aminotransferase 23 IU/L (<35); Albumin 4.6 g/dL (3.5-5.0); Albumin Globulin Ratio 1.2 (1.0-2.8); Alkaline Phosphatase 60 U/L (38-126); Aspartate Aminotransferase 23 IU/L (14-36); BUN Creatinine Ratio 24.7 (6-22); Bilirubin Total 0.6 mg/dL (0.2-1.3); Blood Urea Nitrogen 18 mg/dL (7-17); Calcium 10.3 mg/dL (8.4-10.2); Carbon Dioxide 27 mmol/L (22-32); Chloride 102 mmol/L (98-107); Estimated Glomerular Filt Rate > 60.0 mL/min (>60); Globulin 3.8 g/dL (1.7-4.1); Glucose 93 mg/dL (70-100); HEMOLYSIS < 15 (0-50); Potassium 4.4 mmol/L (3.4-5.1); Total Protein 8.4 g/dL (6.3-8.2)
[2020-03-11 14:08] LABS: Sodium 138 mmol/L (137-145); White Blood Cell Count 5.6 X10^3/uL (4.5-11.0)
== END ==
PROVIDERS: PCP Family Medicine; Referring Provider Family Medicine; Visit Provider Family Medicine
DX: Z01.818 Encounter for other preprocedural examination (principal)
CPT/HCPCS: 36415; 80053; 85025

== ENCOUNTER 2020-03-17 03:49 | Emergency (ER) | payer OTHER, MEDICAID, SELFPAY ==
[2020-03-17 03:57] VITALS: BP 141/94; PULSE 80; RESP 18; TEMP 36.6; O2SAT 98; BMI 29.1
--- NOTE | 2020-03-17 04:05 | ED.BACK ---
HPI - Back Pain/Injury General Chief Complaint: Back Pain/Injury Stated Complaint: nerve pain from cyst Time Seen by Provider: 03/17/20 03:51 Source: patient Mode of arrival: Ambulatory Limitations: no limitations History of Present Illness HPI Narrative: Patient is a 49-year-old female with known lower back degenerative disc disease and a periarticular cyst at the L4-L5 level noted on an MRI done earlier this year who is scheduled for back surgery on Tuesday this week by neuro surgery at the [facility] here for evaluation of worsening lower back pain and radicular/nerve symptoms to her right lower extremity. She has had symptoms for some time now on stress over the past couple days it has worsened. She states she has not done anything that would make her symptoms worse. She states she is limited on what she can take with regard anti-inflammatories and steroids secondary to the surgery that is later this week. She denies any fevers. Denies any new trauma. Denies any urinary symptoms. Has taken Tylenol without any improvement. Related Data Previous Rx's Medication Instructions Recorded ibuprofen 800 mg tablet 800 mg PO Q8H #30 tab 06/22/19 methylprednisolone 4 mg tablets in See Rx Instructions PO PER PKG DIR 06/22/19 a dose pack #21 tab lorazepam 1 mg tablet 1 mg PO .COMPLEX PRN #4 tab 08/27/19 oxycodone-acetaminophen [Percocet] 1 tab PO Q4-6H PRN #14 tab 03/17/20 Allergies Allergy/AdvReac Type Severity Reaction Status Date / Time No Known Drug Allergies Allergy Verified 06/22/19 09:59 Review of Systems Constitutional Constitutional: Denies fever(s) Cardiovascular Cardiovascular: Denies chest pain and Denies dyspnea Respiratory Respiratory: Denies dyspnea Gastrointestinal Gastrointestinal: Denies abdominal pain Genitourinary Genitourinary: Denies dysuria, Denies urinary hesitancy and Denies urinary incontinence Genitourinary: Denies dysuria, Denies urinary incontinence and Denies urinary hesitancy Musculoskeletal Musculoskeletal: Reports back pain, Reports numbness (Right lower extremity) and Reports tingling Integumentary/Breasts Skin/Breast: Denies lesions and Denies rash Neurologic Neurologic: Denies confusion, Reports numbness (Right lower extremity), Reports tingling and Reports paresthesias Psychiatric Psychiatric: Denies confusion Patient History Medical History Depression (Chronic) Factor V Leiden (Chronic) Surgical History Status post tubal ligation (~2006) Family History Mother Factor V Leiden Social History marital status: Smoking Status: Never smoker alcohol intake: current substance use type: does not use Smoking Status: Never smoker alcohol intake frequency: 0-2 drinks per day Substance Use Type: does not use Exam Initial Vital Signs Initial Vital Signs: Vital Signs Temperature 97.8 F 03/17/20 03:57 Pulse Rate 80 03/17/20 03:57 Respiratory Rate 18 03/17/20 03:57 Blood Pressure 141/94 H 03/17/20 03:57 Pulse Oximetry 98 03/17/20 03:57 Const General: cooperative, comfortable and well developed Limitations: mental status not altered HENVT Head: normal to inspection and normocephalic Resp Effort & Inspection: normal respiratory effort Cardio Rate: regular rate Neuro General: patient alert and patient awake Gait: normal gait Extrem General: normal to inspection Psych Appearance: grossly normal and well kempt Course Orders Ordered: Discontinued Medications Oxycodone/Acetaminophen (Endocet 5/325 Prepack) 1 bottle MISC SEEINSTR ONE Stop: 03/17/20 04:07 Last Admin: 03/17/20 04:19 Dose: 1 bottle Documented by: DAYANARA Vital Signs Vital signs: Vital Signs - 8 hr 03/17/20 03:57 Temperature 97.8 F Pulse Rate 80 Respiratory Rate 18 Blood Pressure 141/94 H Pulse Oximetry 98 MDM - Back Pain/Injury MDM Narrative Medical decision making narrative: I did review the patient's prior notes and MRIs. She does have known degenerative disc disease with a cyst in her right lower back is scheduled for surgery. Unfortunately we are limited on what we can give her here in the ER secondary to this scheduled surgery as we do not want to delay it with the use of steroids or anti-inflammatories. She does not have any pain medication at home. Will send her home with pain medication. Feel we can hold on further radiologic studies here in the ER. She was instructed to keep her appointment on Tuesday. She expressed understanding and agreement. Discharge Plan Departure Patient Disposition: Home Clinical Impression: Low back pain radiating down leg Instructions: DI for Back Pain With Sciatica Activity Restrictions/Additional Instructions: Take the pain medication as directed. Keep your appointment on Tuesday for your surgery. Return to the emergency department for any new or worsening symptoms Prescriptions: New oxycodone-acetaminophen [Percocet] 5-325 mg tablet 1 tab PO Q4-6H PRN (Reason: pain) Qty: 14 RF: 0 No Action ibuprofen 800 mg tablet 800 mg PO Q8H Qty: 30 RF: 0 methylprednisolone 4 mg tablets,dose pack See Rx Instructions PO PER PKG DIR Qty: 21 RF: 0 lorazepam 1 mg tablet 1 mg PO .COMPLEX PRN (Reason: anxiety) Qty: 4 RF: 0 Referrals: Chichi Chester DO [Primary Care Provider] -
[2020-03-17] MEDS: OXYCODONE/APAP 5/325 PREPACK 1 BOTTLE MISC (04:19)
== END 2020-03-17 04:25 | disposition home or self-care (01) ==
PROVIDERS: Emergency Provider Emergency Medicine; PCP Family Medicine
DX: M54.5 Low back pain (principal)
CPT/HCPCS: 99281; 99283

== ENCOUNTER → 2020-10-17 12:37 | Outpatient (CLI) | payer OTHER, MEDICAID, SELFPAY ==
--- NOTE | 2020-10-17 | DI.US.S_ITS ---
LIMITED ULTRASOUND OF RIGHT BREAST: 10/17/2020 CLINICAL: Patient returns today to evaluate a focal asymmetry in the right breast. Comparison is made to exams dated: 10/17/2020 mammogram, 10/28/2008 mammogram, and 10/28/2008 [facility]. Color flow ultrasound of the right breast was performed. Mustafa scale images of the real-time examination were reviewed. There is a 0.9 cm x 0.6 cm x 0.6 cm oval cyst with a smooth internal wall in the right breast at 9 o'clock middle depth 3 cm from the nipple. This oval cyst is hypoechoic with a well-defined boundary and posterior acoustic enhancement. This correlates with mammography findings. Color flow imaging demonstrates that there is no vascularity present. IMPRESSION: PROBABLY BENIGN The 0.9 cm x 0.6 cm x 0.6 cm oval cyst in the right breast most likely is a complicated cyst and is probably benign. A follow-up right mammogram and an ultrasound in 6 months is recommended to demonstrate stability. This exam was interpreted at Station ID: Unknown. Electronically Signed By: Brijesh mcdonald/alex:10/17/2020 14:57:12 Entry: marilyn - 10/20/2020 10:18:11 Ultrasound BI-RADS: 3 Probably benign
--- NOTE | 2020-10-17 | DI.US.S_ITS ---
LIMITED ULTRASOUND OF LEFT BREAST: 10/17/2020 CLINICAL: Palpable left breast lump and focal pain. Comparison is made to exams dated: 10/17/2020 mammogram, 10/28/2008 mammogram, and 10/28/2008 [facility]. Real-time ultrasound of the left breast was performed. Mustafa scale images of the real-time examination were reviewed. No significant abnormalities were seen sonographically in the left breast. IMPRESSION: NEGATIVE There is no sonographic evidence of malignancy. There is no abnormality seen in the left breast to correspond with the palpable abnormality in the lower inner quadrant, however, clinical correlation is recommended. A 1 year screening mammogram is recommended. This exam was interpreted at Station ID: [id number]. Electronically Signed By: Brijesh mcdonald/alex:10/17/2020 14:58:32 letter sent: Clinical Evaluation Ultrasound BI-RADS: 1 Negative
--- NOTE | 2020-10-17 12:39 | DI.MG.S_ITS ---
BILATERAL DIGITAL DIAGNOSTIC MAMMOGRAM 3D/2D: 10/17/2020 CLINICAL: Left breast pain. Comparison is made [facility] The tissue of both breasts is heterogeneously dense. This may lower the sensitivity of mammography. There is a 1 cm oval mass with a circumscribed margin in the right breast at 9 o'clock middle depth. This correlates as an incidental finding. No other significant masses, calcifications, or other findings are seen in either breast. IMPRESSION: INCOMPLETE: NEEDS ADDITIONAL IMAGING EVALUATION The 1 cm oval mass in the right breast is indeterminate. Targeted ultrasound is recommended for further evaluation, which will be performed immediately following this exam. There is no abnormality seen in the left breast to correspond with the diffuse pain, however, clinical correlation is recommended. There is no abnormality seen in the left breast to correspond with the palpable abnormality in the lower inner quadrant, however, ultrasound is recommended. This exam was interpreted at Station ID: [id number]. NOTE: For mammograms, a report in lay terms will be sent to the patient. Approximately 15% of breast malignancies will not be visualized mammographically. In the management of a palpable breast mass, a negative mammogram must not discourage biopsy of a clinically suspicious lesion. Electronically Signed By: Brijesh mcdonald/alex:10/17/2020 14:55:14 ACR BI-RADS Category 0: Incomplete [id number]
== END ==
PROVIDERS: PCP Family Medicine; Referring Provider Family Medicine; Visit Provider Family Medicine
DX: N64.4 Mastodynia (principal); Z12.39 Encounter for other screening for malignant neoplasm of breast
CPT/HCPCS: 76642; 77066; G0279